=== PATIENT | female | born 1980 | race Caucasian/White ===

== ENCOUNTER 2018-05-28 06:02 | Day surgery (SDC) | payer BC ==
[~2018-05-28 06:02] MED LIST: ACETAMINOPHEN 1,000 MG/100 ML BTL IV ONE; CLINDAMYCIN 600MG/50ML PREMIX 600 MG/50 ML BAG IVPB ONE; FAMOTIDINE 20MG TABLET PO ONE; MECLIZINE 25 MG TABLET PO ONE
[2018-05-28] MEDS ORDERED: LIDOCAINE 2% MDV (20MG/ML) 20ML VIAL IV ONE (06:03)
[2018-05-28] MEDS ORDERED: MIDAZOLAM HCL 2MG/2ML VIAL IV ONE (06:03)
[2018-05-28] MEDS ORDERED: BUPIVACAINE 0.5% W/EPI MPF 30 ML VIAL IVP ONE (06:03)
[2018-05-28] MEDS ORDERED: PROPOFOL 10 MG/ML VIAL IV ONE (06:03)
[2018-05-28] MEDS ORDERED: FENTANYL PF 100MCG/2ML VIAL IV ONE ×2 (06:03)
[2018-05-28] MEDS ORDERED: Clindamycin 600mg vial 150 MG/ML VIAL IVPB ONE (06:03)
[2018-05-28] MEDS ORDERED: DIPHENHYDRAMINE HCL 50 MG/ML VIAL IVP ONE (06:03)
[2018-05-28] MEDS ORDERED: LIDOCAINE 1% W/EPI 1:200,000 MPF 30ML SQ ONE (06:03)
[2018-05-28] MEDS ORDERED: HYDROCODONE/APAP 7.5/325MG TABLET PO ONE (06:03)
--- NOTE | 2018-05-28 06:32 | History and Physical - Ferro ---
CHIEF COMPLAINT/HISTORY OF CHIEF COMPLAINT: This patient presents with a history of an intractable lumbar radiculopathy. Due to the failure of all therapies a spinal cord stimulator trial was conducted on 05/03/18 with 75-85% pain control. Due the failure of all therapies and the success of the trial, she presents today for implantation of a permanent system. PAST MEDICAL HISTORY: Hypothyroidism, asthmatic bronchitis, sleep apnea, and hypertension. PAST SURGICAL HISTORY: Tonsils, section, hysterectomy, and bypass surgery. EMPLOYMENT STATUS: Parti-time. MEDICATIONS ON ADMISSION: List to be provided. ALLERGIES: VICODIN, BIAXIN, EFFEXOR, AND HYDROCORTISONE. FAMILY/PSYCHOSOCIAL HISTORY: Social history - Caffeine. Family history - Diabetes, coronary artery disease, hypertension, and cancer. SYSTEMS REVIEW: The patient is appropriate in no acute distress. The remainder of the systems review is positive for peripheral edema, reflux esophagitis, degenerative arthritis, and anxiety disorder. PHYSICAL EXAMINATION: Height is 5'4", weight is 200 pounds. Vital signs - Not available. HEENT: Within normal limits. LUNGS: Clear. HEART: Rapid and regular rate. ABDOMEN: Nontender. MUSCULOSKELETAL: Examination of the musculoskeletal system shows diffuse tenderness throughout the lumbar spine. Range of motion does produce pain throughout the low back and extending into both lower extremities. There is mild sensory and motor weakness in both lower extremities. Assistive device utilized for ambulation. NEUROLOGIC: Cranial nerves are intact. IMPRESSION: LUMBAR RADICULOPATHY, ICD-10 CODE M54.16 AND M54.17. PLAN: The patient is here for a permanent spinal cord stimulator implant after a successful trial and the failure of all other therapies. The procedure will be considered outpatient although an overnight stay will be evaluated. JOB NUMBER: [id number] [facility]
--- NOTE | 2018-05-28 13:35 | Operative Note ---
DATE: 05/28/2018. PRIMARY CARE PHYSICIAN: Frida Cary M.D. PREOPERATIVE DIAGNOSIS: INTRACTABLE LUMBAR RADICULOPATHY, ICD-10 CODE M54.16 AND M54.17. PROCEDURES: 1. Fluoroscopically guided left epidural access at T11-12. Placement of spinal cord stimulator lead 1, a [employer] Infineon 16 with 16 electrodes, positioned left T7. 2. Fluoroscopically guided epidural access left T12-L1. Placement of spinal cord stimulator lead 2, a [employer] Infineon 16 with 16 electrodes, positioned right T7. 3. Complex programming of lead 1 over 20 minutes followed by complex programming of lead 2 over 20 minutes. 4. Incision, subcutaneous dissection, and anchoring of leads 1 and 2 to the supraspinous fascia using a [employer] locking anchor. 5. Incision, subcutaneous dissection, and creation of subcutaneous pouch at the left flank for placement of generator identified as a [employer] programmable rechargeable WaveWriter generator. 6. Tunnelling between pouches with placement of the external portions of lead 1 and lead 2 into generator pouch. Interfacing each lead to the generator. 7. Closure of incisions using Stratafix suture; #2-0 for the fascia and #3-0 for the skin. Dermabond closure. 8. Complex recovery room programming of the internal generator for home use, two stimulators, for 20 minutes. SURGEON: Terry Vera D.O. ANESTHESIA: Local sedation. ANESTHESIA PROVIDER: Rudy Llanes CRNA. INDICATIONS: This patient presents with a history of intractable lumbar radiculopathy. Due to the failure of all therapies, a spinal cord stimulator trial was conducted with 75 to 85 percent pain control. Due to the failure of all therapies and the success of the trial, the patient presents for implantation of a permanent system. DESCRIPTION OF PROCEDURE: Intravenous lines, vital sign monitoring, and intravenous sedation. Prepped and draped with sterile technique with the patient positioned prone. Under imaging with local anesthetic the epidural interspaces left of the midline at T11-12 and 12-1 were marked and infiltrated. Using two separate Epimed needles curved access with loss of resistance the spaces were accessed. At 11-12 spinal cord stimulator lead 1, a [employer] Infineon 16 with 16 electrodes, was positioned left of T7. With the epidural access at 12-1, spinal cord stimulator lead 2, a [employer] Infineon 16 with 16 electrodes was positioned right of midline at T7. Complex programming of lead 1 over 20 minutes was followed by complex programming of lead 2 over 20 minutes. This resulted in complete patterns of stimulation across the back and into the legs. The patient indicated we were in all of the areas of the pain. She was given the options to implant, continue to program, or remove. She opted to implant. The questions were repeated with the same response. The skin above and below both needles was infiltrated. An incision was made, and subcutaneous dissection was conducted to the supraspinous fascia. The needles were removed, and then each lead was anchored to the supraspinous fascia with a [employer] locking anchor. At the left flank, the site picked by the patient for the generator, the skin was infiltrated. An incision was made and subcutaneous dissection was conducted to perform a pouch of suitable size and depth for the generator. Antibiotic irrigation and Bovie for hemostasis. A tunneling tool was used to carry the leads into the generator pouch, and then each lead was interfaced to the generator. The generator was placed into the pouch and secured to the fascia with nonabsorbable suture. The leads were placed into their own pouch. Both incisions were then closed using Stratafix suture; #2-0 for the fascia and #3-0 for the skin. Dermabond closure She was transported to the recovery room stable with no side effects from the procedure or the sedation. When fully awake and alert, complex programming was performed in the recovery room over 20 minutes, re-establishing stimulation of pain control to all of the appropriate areas. She was instructed on use of the system and was provided with information on error messaging. She was then prepared for discharge. DISCHARGE INSTRUCTIONS: 1. The sites are to remain clean and dry. No showering or bathing in any way that would disrupt the dressings. If this happens, she is to contact the clinic. The Dermabond will allow showering. She may shower but may not sit in water. 2. Standard medications to be resumed including the antibiotic Levaquin 500 mg once a day for 14 days. 3. The office will contact the patient in 24 to 48 hours to set up an appointment in 7 to 10 days to evaluate the sites. Until then she is to keep her activities low. 4. The antibiotic has been called in. 5. All other instructions were provided including numbers to contact with problems. She was then discharged. JOB NUMBER: [id number] cc: Frida Cary M.D. MTDD
--- NOTE | 2018-05-30 20:48 | RADIOLOGY REPORT ---
EXAM: SPINE, 1 VIEW HISTORY: SPINAL CORD STIMULATOR IMPLANT. TECHNIQUE: Single frontal view of the spine. COMPARISON: None. FINDINGS: Spinal cord stimulator leads superimpose the thoracic spine from the T7 through T9-10 levels. Generator pack superimposes the left hemiabdomen. Left abdominal surgical clips are noted. Large volume of stool in the projection of the ascending colon. Visualized lung bases are clear. IMPRESSION: ABOVE. JOB NUMBER: [id number] MTDD
== END 2018-05-28 10:30 | disposition home or self-care (01) ==
LOC: SUR 06:02
PROVIDERS: ATTEND Pain Medicine Interventional Pain Medicine
DX: M54.16 Radiculopathy, lumbar region (principal); M54.17 Radiculopathy, lumbosacral region; I10 Essential (primary) hypertension; J45.909 Unspecified asthma, uncomplicated; K21.9 Gastro-esophageal reflux disease without esophagitis; F41.8 Other specified anxiety disorders; E03.9 Hypothyroidism, unspecified; G47.30 Sleep apnea, unspecified
CPT/HCPCS: 63685; 63650 ×2; 01936; 95972; 72020; J3010; C1820; C1883; J1200

== ENCOUNTER 2018-11-17 07:30 | Day surgery (SDC) | payer BC ==
--- NOTE | 2018-11-17 06:40 | History and Physical - Ferro ---
CHIEF COMPLAINT/HISTORY OF CHIEF COMPLAINT: This patient presents with a history of an intractable cervical radiculopathy. Due to the failure of therapy, a spinal cord stimulator trial was conducted on 11/02/18 with 75+% pain control. Due to the failure of therapy and the success of the trial, the patient presents today for implantation of a permanent system. PAST MEDICAL HISTORY: Hypothyroidism, asthmatic bronchitis, sleep apnea, and hypertension. PAST SURGICAL HISTORY: Tonsils, section, hysterectomy, and bypass surgery. 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 MEDICATIONS ON ADMISSION: List to be provided. ALLERGIES: VICODIN, BIAXIN, EFFEXOR, AND HYDROCORTISONE. FAMILY/PSYCHOSOCIAL HISTORY: Social history - Caffeine. Family history - Diabetes, coronary artery disease, hypertension and cancer. SYSTEMS REVIEW: The patient seems appropriate in no acute distress. The remainder of the systems review is positive for peripheral edema, reflux esophagitis, degenerative arthritis, and anxiety disorder. PHYSICAL EXAMINATION: Height is 5'4", weight is 200 pounds. No vital signs. HEENT: Within normal limits. LUNGS: Clear. HEART: Rapid and regular. ABDOMEN: Nontender. MUSCULOSKELETAL: Examination of the musculoskeletal system shows diffuse tenderness throughout the cervical spine. Range of motion does produce pain throughout the area. There is tenderness along the trapezius, suprascapular, deltoid, and medial rhomboideus muscle groups. Upper extremity function shows no specific or focal sensory or motor abnormalities. Hand grasp and suit attendant strength is intact. NEUROLOGIC: Cranial nerves are intact. IMPRESSION: CERVICAL RADICULOPATHY, ICD-10 CODE M54.12. PLAN: The patient is here for a permanent spinal cord stimulator in the cervical region after the failure of all therapies and the success of the trial. The procedure has been discussed and reviewed in detail. A clinical specialist has interacted with the patient and all questions have been answered. The potential risks, side, effects and complications have been reviewed and discussed. The procedure will be considered outpatient although an overnight stay will be evaluated. [facility]BER: [id number] [facility]
[~2018-11-17 07:30] MED LIST changes: -ACETAMINOPHEN 1,000 MG/100 ML BTL IV ONE; +ACETAMINOPHEN 1,000 MG/100 ML BTL IVPB ONE
[2018-11-17] MEDS ORDERED: FENTANYL PF 100MCG/2ML VIAL IV ONE (07:31)
[2018-11-17] MEDS ORDERED: Clindamycin 600mg vial 150 MG/ML VIAL IVPB ONE (07:31)
[2018-11-17] MEDS ORDERED: ONDANSETRON HCL IV 4 MG/2 ML VIAL IVP ONE (07:31)
[2018-11-17] MEDS ORDERED: PROPOFOL 10 MG/ML VIAL IV ONE (07:31)
[2018-11-17] MEDS ORDERED: DIPHENHYDRAMINE HCL 50 MG/ML VIAL IVP ONE (07:31)
[2018-11-17] MEDS ORDERED: MIDAZOLAM HCL 2MG/2ML VIAL IV ONE (07:31)
[2018-11-17] MEDS ORDERED: LIDOCAINE 2% MDV (20MG/ML) 20ML VIAL IV ONE (07:31)
[2018-11-17] MEDS ORDERED: RINGERS SOLUTION,LACTATED 1,000 ML IV ONE ×2 (08:14→11:40)
[2018-11-17] MEDS ORDERED: BUPIVACAINE 0.5% W/EPI MPF 30 ML VIAL SQ ONE ×2 (10:40)
[2018-11-17] MEDS ORDERED: LIDOCAINE 1% W/EPI 1:100,000 MDV 20 ML VIAL SQ ONE ×2 (10:40)
[2018-11-17] MEDS ORDERED: OXYCODONE/APAP 10MG-325MG TABLET PO ONE (12:31)
--- NOTE | 2018-11-18 11:11 | Operative Note ---
DATE OF SURGERY: 11/17/2018 PREOPERATIVE DIAGNOSES: Cervical radiculopathy, ICD-10 code M54.12. OPERATION: 1. Fluoroscopic-guided left epidural access T2-3, placement of spinal cord stimulator lead 1, a [employer] Infinion 16 6 electrodes positioned left C2. 2. Fluoroscopic-guided epidural access left T3-4, placement of spinal cord stimulator lead 2, a [employer] Infinion 16 6 electrodes positioned right C2. 3. Complex programming of lead 1 over 20 minutes, followed by complex programming of lead 2 over 20 minutes. 4. Incision subcutaneous dissection and anchoring of leads 1 and leads 2 to supraspinous fascia with a [employer] locking anchor nonabsorbable suture. 5. Incision and subcutaneous dissection and creation of a subcutaneous pouch right flank, for placement of generator, a [employer] programmable rechargeable WaveWriter. 6. Tunneling between lead pouch into generator pouch, placement of external portion of lead 1 and lead 2 in the generator pouch, each lead interfaced to the generator. 7. Placement of leads into pouch, placement of generator pouch, closure of both incisions using Stratafix suture, 2-0 fascia, 3-0 skin, Dermabond closure. 8. Complex recovery room programming internal generator home use 2 stimulators, 20 minutes. SURGEON: Terry Vera D.O. PRIMARY: Dr. Frida Cary. ANESTHESIA: Local sedation. ANESTHESIA PROVIDER: Sreedhar Gallegos CRNA. INDICATION: This patient presents with a history of intractable cervical radiculopathy. Due to the failure of all therapies, a spinal cord stimulator trial was conducted with 75 to 85% pain control. Due to the failure of all therapy and the success of the trial, the patient presents today for implantation of a permanent system. PROCEDURE: Intravenous line, vital sign monitoring, IV sedation, prepped and draped in sterile technique, under imaging, the patient prone. From the left, with local anesthetic, the epidural interspace at T2-3 and C4 were marked and infiltrated, then using 2 standard epidural needles, the epidural space was accessed atraumatic, no blood, no CSF. At T2-3 spinal cord stimulator lead 1 a [employer] Infinion 16 6 electrodes was advanced under imaging positioned left of the midline at C2. With the access at 3-4 spinal cord stimulator lead 2 [employer] Infinion 16 6 electrodes was positioned right of the midline, positioned at C2. Complex programming of lead 1 over 20 minutes, complex programming of lead 2 over 20 minutes with the patient awake and alert, resulted in complete pattern stimulation across the neck and into the shoulders and arms, the patient indicating we had all the areas. She was given the option to implant, continue to program, or remove. She opted to implant. The question was repeated with the same response. The skin below both needles was infiltrated with local. An incision was made and subcutaneous dissection was conducted in the supraspinous fascia. The needles were removed and each lead was anchored to the supraspinous fascia with a [employer] locking anchor and nonabsorbable suture. At the right flank, the site picked by the patient for the generator, a [employer] programmable rechargeable WaveWriter, the skin infiltrated, an incision made and subcutaneous dissection was conducted to the supraspinous fascia. The needles were removed, then each lead was anchored to the fascia with a nonabsorbable suture and a locking anchor. At the right flank, a site picked by the patient for the generator, the skin infiltrated, an incision made and subcutaneous dissection was conducted to form a pouch of suitable size and depth for the generator, a [employer] programmable rechargeable WaveWriter. A tunneling tool was then used to carry the leads into the generator pouch and then each lead was interfaced with the generator. Antibiotic irrigation and Bovie for hemostasis at both sites. The generator was then placed in its pouch. The leads were placed in their own pouch and then both incisions were closed using Stratafix suture 2-0 fascia and 3-0 skin. Dermabond closure was then used to approximate the edges of both wounds. The patient was transported to the recovery room stable. There were no side effects from the procedure or sedation. When fully awake and alert, complex programming of the system was performed, re-establishing stimulation and pain control to all the appropriate areas. The patient was requesting to be discharged home. Discharge instructions were provided. DISCHARGE INSTRUCTIONS: 1. The sites will remain clean and dry, although the Dermabond will allow showering, she should not sit in water. 2. Standard medications resumed, including the antibiotic Levaquin, 500 mg once a day for 14 days. 3. The office to contact the patient in the next 12 to 24 hours to set up a time in the next 7 to 10 days for us to evaluate the sites. Until then, her sites should stay clean and dry. Limit bend, lift, push, and pull. 4. All other instructions were provided, with numbers to contact if problems given. She was then discharged. NEVILLE
--- NOTE | 2018-11-19 11:13 | RADIOLOGY REPORT ---
EXAM: CERVICOTHORACIC SPINE, ONE VIEW HISTORY: CERVICAL SPINAL CORD STIMULATOR IMPLANT. TECHNIQUE: A single AP potable supine view of the spine was obtained including the cervical and upper three quarters of the thoracic spine. Comparison: Spine one view dated 05/28/18. FINDINGS: Two intraspinal stimulator leads have been placed in the interval entering the spinal canal at the upper thoracic levels, likely T3-T4. Stimulator leads are noted projecting at the C3 level. Two previously demonstrated intraspinal stimulator leads remain in place with lead tips projecting at the T7-T8 level. No acute osseous abnormality noted. IMPRESSION: CERVICAL INTRASPINAL STIMULATOR LEADS IN PLACE WITH LEAD TIPS AT THE C3 LEVEL. JOB NUMBER: [id number] MTDD
== END 2018-11-17 13:02 | disposition home or self-care (01) ==
LOC: SUR 07:30
PROVIDERS: ATTEND Pain Medicine Interventional Pain Medicine
DX: M54.12 Radiculopathy, cervical region (principal); I10 Essential (primary) hypertension; J45.909 Unspecified asthma, uncomplicated; G47.33 Obstructive sleep apnea (adult) (pediatric); K21.9 Gastro-esophageal reflux disease without esophagitis
CPT/HCPCS: 72020; 95972; C1820; C1883; J1200; J2405; J7120

== ENCOUNTER 2019-03-09 06:45 | Day surgery (SDC) | payer BC ==
--- NOTE | 2019-03-09 06:24 | History and Physical - Ferro ---
CHIEF COMPLAINT/HISTORY OF CHIEF COMPLAINT: This patient presents with history of intractable cervical radiculopathy. Due to failure of all therapies, a spinal cord stimulator implant was performed for neck, shoulder and arm on 11/17/18. Everything appeared to be working quite well with respect to the stimulator the generator site became quite uncomfortable sitting at the right flank. The generator began to migrate, move and flip within the pouch making the area sore, uncomfortable and making it difficult for recharging and programming. She is here for revision and repositioning of the generator. PAST MEDICAL HISTORY: Hypothyroidism, asthmatic bronchitis, sleep apnea, and hypertension. PAST SURGICAL HISTORY: Tonsils, section, hysterectomy, and coronary bypass surgery. EMPLOYMENT STATUS: She is employed. MEDICATIONS ON ADMISSION: List to be provided. ALLERGIES: VICODIN, BIAXIN, EFFEXOR, AND HYDROCORTISONE. FAMILY/PSYCHOSOCIAL HISTORY: Social history - Caffeine. Family history - Diabetes, coronary artery disease, hypertension and cancer. SYSTEMS REVIEW: The patient is appropriate in no acute distress. The remainder of the systems review is positive for peripheral edema, reflux esophagitis, degenerative arthritis, and anxiety disorder. PHYSICAL EXAMINATION: Height is 5'4", weight is 200 pounds. No vital signs. HEENT: Within normal limits. LUNGS: Clear. HEART: Rapid and regular. ABDOMEN: Nontender. MUSCULOSKELETAL: Examination of the musculoskeletal system shows the generator pouch at the right flank although the incision is intact the generator appears to have flipped and is sitting at approximately a forty-five degree angle. The generator outline can easily be identified, there is some compression and printing on the skin although the skin is not broken down at this point it appears to be very uncomfortable within the area. The remainder of the examination is consistent with bilateral cervical pain and upper extremity components. NEUROLOGIC: Cranial nerves are intact. IMPRESSION: 1. CERVICAL RADICULOPATHY, ICD-10 CODE M54.12. 2. SPINAL CORD STIMULATOR AND INTERNAL GENERATOR WITH GENERATOR POUCH PAIN. PLAN: The patient is here for revision of the generator pouch and repositioning. The procedure will be outpatient, no overnight stay should be necessary. JOB NUMBER: [id number] [facility]
[2019-03-09] MEDS ORDERED: PROPOFOL 10 MG/ML VIAL IV ONE (06:46)
[2019-03-09] MEDS ORDERED: KETAMINE HCL 100MG/1ML VIAL INJ ONE (06:46)
[2019-03-09] MEDS ORDERED: LIDOCAINE 2% MDV (20MG/ML) 20ML VIAL IV ONE (06:46)
[2019-03-09] MEDS ORDERED: Clindamycin 600mg vial 150 MG/ML VIAL IVPB ONE (06:46)
[2019-03-09] MEDS ORDERED: ONDANSETRON HCL IV 4 MG/2 ML VIAL IVP ONE (06:46)
[2019-03-09] MEDS ORDERED: RINGERS SOLUTION,LACTATED 1,000 ML IV ONE (07:30)
[2019-03-09] MEDS ORDERED: BUPIVACAINE 0.5% W/EPI MPF 30 ML VIAL SQ ONE (08:47)
[2019-03-09] MEDS ORDERED: LIDOCAINE 1% W/EPI 1:100,000 MDV 20 ML VIAL SQ ONE (08:47)
[2019-03-09] MEDS ORDERED: OXYCODONE/APAP 10MG-325MG TABLET PO ONE (09:42)
[2019-03-09] MEDS ORDERED: HYDROCODONE/APAP 7.5/325MG TABLET PO ONE (09:42)
--- NOTE | 2019-03-10 13:51 | Operative Note ---
DATE OF SURGERY: 03/09/2019 PREOPERATIVE DIAGNOSES: 1. Cervical radiculopathy, ICD10 code M54.16 and M54.17. 2. Implanted cervical spinal cord stimulator internal generator with generator pouch pain. OPERATION: 1. Incision, subcutaneous dissection, and removal of spinal cord stimulator generator right flank. 2. Incision, subcutaneous dissection, and creation of new subcutaneous pouch [id number] thoracic right flank. 3. Tunneling of lead extensions into generator pouch each lead extension interfaced to generator. 4. Placement of generator pouch, closure of both incisions using Stratafix suture, 2-0 fascia, 3-0 skin, Dermabond closure. 5. Complex programming internal generator. SURGEON: Terry Vera, ANESTHESIA: Local with sedation. ANESTHESIA PROVIDER: Christin Hirsch INDICATION: This patient presents with a history of intractable cervical radiculopathy. Due to the failure of therapy, spinal cord stimulator internal generator was placed with the generator at the low right flank. Over time, because of the soft tissue region, the generator has moved. It is angled roughly 45 degrees and created significant amount of pain. She is here for removal, replacement, and relocation. PROCEDURE: Intravenous line, vital sign monitoring, IV sedation. Patient positioned prone. The incisional pouch to the generator infiltrated, incision made, and subcutaneous dissection was conducted to the pouch. The pouch was opened. The generator was exteriorized and removed from the field. A new pouch approximately 6 cm above was infiltrated. An incision was made, and subcutaneous dissection was conducted to form a pouch of suitable size and depth for the generator. A new [employer] WaveWriter generator placed onto the field. A tunneling tool was used to carry the lead extensions from the previous pouch superior into the new pouch. Antibiotic irrigation, Bovie for hemostasis. Each of the lead extensions was then interfaced to the generator. The generator was placed into the new pouch and then both incisions were closed using Stratafix suture, 2-0 fascia, 3-0 skin, Dermabond closure. She was transferred to the recovery room stable. There were no side effects from the procedure or sedation. When fully awake and alert in the recovery room, complex programming was then performed over 20 minutes reestablishing stimulation and pain control to all the appropriate areas. She was instructed on the system, provided information, and prepared for discharge. DISCHARGE INSTRUCTIONS: 1. Sites to remain clean and dry. The Dermabond will allow showering but she should not sit in water. 2. Standard medication resumed including antibiotic Levaquin 500 mg once a day for 14 days. 3. Office to contact the patient over the next several days to set up a time in the following week in roughly 5-7 days for us to evaluate the sites. Until then, she is to keep her activities controlled. She has suggested that she would be returning to work in a capacity that would not put the incisions under stress or strain. I suggested that she should monitor this and advise us. All the instructions provided, numbers to contact if problems given. She was then discharged. NEVILLE
== END 2019-03-09 10:30 | disposition home or self-care (01) ==
LOC: SUR 06:45
PROVIDERS: ATTEND Pain Medicine Interventional Pain Medicine
DX: M54.16 Radiculopathy, lumbar region (principal); M54.17 Radiculopathy, lumbosacral region; T85.848A Pain due to other internal prosthetic devices, implants and grafts, initial encounter; I10 Essential (primary) hypertension; G21.9 Secondary parkinsonism, unspecified; E03.9 Hypothyroidism, unspecified; J45.909 Unspecified asthma, uncomplicated; E66.9 Obesity, unspecified
CPT/HCPCS: C1820; J2405; J3490; J7120

== ENCOUNTER 2019-06-01 08:55 | Day surgery (SDC) | payer BC ==
--- NOTE | 2019-06-01 07:02 | History and Physical - Ferro ---
CHIEF COMPLAINT/HISTORY OF CHIEF COMPLAINT: This patient presents with a history of an intractable lumbar radiculopathy. Diagnostic imaging shows diffuse spondylitic change and multiple disk abnormalities. Due to the failure of therapy she is here for an implanted spinal catheter infusion trial with Hydromorphone to determine if the implantation of a permanent system can be of any value in pain control. PAST MEDICAL HISTORY: Hypothyroidism, asthmatic bronchitis, sleep apnea, and hypertension. PAST SURGICAL HISTORY: Hysterectomy, coronary artery bypass, tonsils, and section. MEDICATIONS ON ADMISSION: List to be provided. ALLERGIES: VICODIN, BIAXIN, EFFEXOR, AND HYDROCORTISONE. FAMILY/PSYCHOSOCIAL HISTORY: Social history - Caffeine. Family history - Diabetes, coronary artery disease, hypertension and cancer. SYSTEMS REVIEW: The patient is appropriate in no acute distress. The remainder of the systems review is positive for peripheral edema, reflux esophagitis, degenerative arthritis, and anxiety disorder. PHYSICAL EXAMINATION: Height is 5'4", weight is 200 pounds. No vital signs. HEENT: Within normal limits. LUNGS: Clear. HEART: Rapid and regular. ABDOMEN: Nontender. MUSCULOSKELETAL: Examination of the musculoskeletal system shows diffuse tenderness throughout the lumbar spine. Range of motion does produce pain into the low back and extending into the lower extremities, somewhat more left than right all the way into the foot. Ambulation - No assistive device utilized. Motor and sensory abnormalities show weakness and sensory abnormalities to the left. NEUROLOGIC: Cranial nerves are intact. IMPRESSION: LUMBAR RADICULOPATHY, ICD-10 CODE M54.16 AND M54.17. PLAN: The patient is here for an implanted catheter infusion trial with Hydromorphone to determine if the implantation of a permanent system can be of any value in pain control. The potential risks, side effects, and complications have all been reviewed and discussed. Epidural blood patch will be performed which requires four hours flat and one hour slowly elevated so an overnight stay will be recommended. Information had been given, reviewed and discussed. She was put in contact with a clinical specialist. The potential risks, nerve root trauma, spinal cord injury, and nerve root injury have all been reviewed and discussed. Questions answered. JOB NUMBER: [id number] MTDD
[~2019-06-01 08:55] MED LIST changes: +HYDROMORPHONE PF 2MG/ML AMP 0.008 MG in 0.9 % SODIUM CHLORIDE 10ML VIA 0.996 ML IV ONE; +HYDROMORPHONE PF 2MG/ML AMP 8 MG in 0.9 % SODIUM CHLORIDE 500ML 496 ML IV ONE
[2019-06-01] MEDS ORDERED: RINGERS SOLUTION,LACTATED 1,000 ML IV ONE ×2 (10:02→11:42)
[2019-06-01] MEDS ORDERED: BUPIVACAINE 0.5% W/EPI MPF 30 ML VIAL SQ ONE (11:14)
[2019-06-01] MEDS ORDERED: LIDOCAINE 1% W/EPI 1:100,000 MDV 20 ML VIAL SQ ONE (11:14)
[2019-06-01] MEDS ORDERED: Clindamycin 600mg vial 150 MG/ML VIAL IR ONE (11:21)
[2019-06-01] MEDS ORDERED: ACETAMINOPHEN 325 MG TAB PO PRN (12:45)
[2019-06-01] MEDS ORDERED: SENNOSIDES/DOCUSATE SODIUM UD CAPSULE PO PRN ×2 (12:45)
[2019-06-01] MEDS ORDERED: OXYCODONE/APAP 10MG-325MG TABLET PO PRN (12:45)
[2019-06-01] MEDS ORDERED: DIPHENHYDRAMINE HCL 50 MG/ML VIAL IVP PRN ×2 (12:45)
[2019-06-01] MEDS ORDERED: TEMAZEPAM 15 MG CAPSULE PO PRN (12:45)
[2019-06-01] MEDS ORDERED: DIPHENHYDRAMINE HCL 25 MG CAPSULE PO PRN (12:45)
[2019-06-01] MEDS ORDERED: HYDROMORPHONE HCL 2 MG/ML VIAL IM PRN ×2 (12:45)
[2019-06-01] MEDS ORDERED: AL HYDROX/MAG HYDROX 30ML UD PO PRN (12:45)
[2019-06-01] MEDS ORDERED: PROMETHAZINE HCL 25 MG TABLET PO PRN (12:54)
[2019-06-01] MEDS ORDERED: ONDANSETRON 4 MG ODT TABLET SL PRN (12:55)
[2019-06-01] MEDS ORDERED: ALBUTEROL HFA 8 GM INHALER INH PRN (12:55)
[2019-06-01] MEDS: RINGERS SOLUTION,LACTATED 1,000 ML IV SCH ×2 (15:24→17:05)
[2019-06-01] MEDS: GABAPENTIN 300 MG CAPSULE PO SCH ×2 (16:34→21:34)
[2019-06-01] MEDS: OXYCODONE/APAP 10MG-325MG TABLET PO PRN (16:35)
[2019-06-01] MEDS: BACLOFEN 10 MG TABLET PO SCH ×2 (16:35→23:00)
[2019-06-01] MEDS: DIPHENHYDRAMINE HCL 25 MG CAPSULE PO PRN ×2 (17:52→20:37)
[2019-06-01] MEDS: CLINDAMYCIN 600MG/50ML PREMIX 600 MG/50 ML BAG IVPB SCH (18:01)
[2019-06-01] MEDS: BUPROPION HCL 150 MG TAB.SR.12H PO SCH (21:34)
[2019-06-01] MEDS: PANTOPRAZOLE SODIUM 40 MG TABLET PO SCH (21:35)
[2019-06-01] MEDS ORDERED: TRAZODONE 50 MG TABLET PO SCH (22:00)
[2019-06-02] MEDS: DIPHENHYDRAMINE HCL 25 MG CAPSULE PO PRN ×4 (00:42→15:22)
[2019-06-02] MEDS: OXYCODONE/APAP 10MG-325MG TABLET PO PRN ×3 (00:43→06:24)
[2019-06-02] MEDS: RINGERS SOLUTION,LACTATED 1,000 ML IV SCH ×2 (00:47→04:45)
[2019-06-02] MEDS: CLINDAMYCIN 600MG/50ML PREMIX 600 MG/50 ML BAG IVPB SCH ×2 (03:40→10:50)
[2019-06-02] MEDS ORDERED: LEVOTHYROXINE SODIUM 100 MCG TABLET PO SCH (07:00)
--- NOTE | 2019-06-02 07:23 | RADIOLOGY REPORT ---
EXAMINATION: Spine Single View EXAM DATE: 06/01/2019 12:33 PM TECHNIQUE: Lateral view INDICATION: PAIN PUMP TRIAL COMPARISON: 11/17/2018 ENCOUNTER: Initial FINDINGS: Radiopaque object projects over the abdomen bilaterally with tubes or leads coursing towards the spin e. See operative report for full description of findings. No acute fracture evident on the frontal vi ews obtained. IMPRESSION: 1. Radiopaque object projects over the abdomen bilaterally with tubes or leads coursing towards the s pine. See operative report for full description of findings. Dictated by: Kolby Thrasher DO on 06/02/2019 7:19 AM. .
[2019-06-02] MEDS: GABAPENTIN 300 MG CAPSULE PO SCH ×2 (09:24→15:23)
[2019-06-02] MEDS: PANTOPRAZOLE SODIUM 40 MG TABLET PO SCH (09:24)
[2019-06-02] MEDS: BUPROPION HCL 150 MG TAB.SR.12H PO SCH (09:26)
[2019-06-02] MEDS: BACLOFEN 10 MG TABLET PO SCH ×2 (09:26→15:22)
[2019-06-02] MEDS ORDERED: DULOXETINE HCL 30 MG CAPSULE.DR PO SCH (10:00)
[2019-06-02] MEDS ORDERED: DILTIAZEM HCL 120 MG ER CAPSULE PO SCH (10:00)
--- NOTE | 2019-06-02 10:12 | Operative Note - [facility] ---
DATE OF SURGERY: 06/01/2019 PREOPERATIVE DIAGNOSIS: LUMBAR RADICULOPATHY, ICD-10 CODE M54.16 AND M54.17. OPERATION: 1. FLUOROSCOPICALLY GUIDED SPINAL ACCESS AT L3-L4 PLACEMENT OF THIN WALLED SPINAL CATHETER ADVANCED AND POSITIONED AT T11-T12. 2. DIAGNOSTIC MYELOGRAPHY WITH RADIOLOGIC SUPERVISION AND INTERPRETATION. 3. BOLUS HYDROMORPHONE SPINAL SPACE 0.004 MG GIVEN. 4. INCISION, SUBCUTANEOUS DISSECTION, ANCHORING SPINAL CATHETER TO THE DEEP FASCIA WITH A PlaytoxTRONIC ANCHOR AND NONABSORBABLE SUTURE. 5. INCISION, SUBCUTANEOUS DISSECTION AND CREATION OF SUBCUTANEOUS POUCH RIGHT POSTERIOR GLUTEAL MARGIN ULTIMATELY FOR PUMP. A SMALL SUBCUTANEOUS INCISION IN THE POUCH WAS FORMED. 6. TUNNELLING SPINAL CATHETER TO RIGHT POSTERIOR GLUTEAL POUCH, INTERFACE SPINAL CATHETER WITH SECOND CATHETER COMPONENT BY WAY OF A CONNECTOR. 7. TUNNELLING SECOND CATHETER COMPONENTS 6 CM SUPERIOR FROM POUCH EXITING SKIN, INTERFACED TO EXTERNAL PUMP SET TO DELIVER HYDROMORPHONE AT 0.16 MG A DAY. 8. CLOSURE OF MIDLINE INCISION STRATAFIX SUTURE 2-0 FASCIA AND 3-0 SKIN, CLOSURE OF POSTERIOR GLUTEAL POUCH WITH RUNNING NYLON. 9. EPIDURAL BLOOD PATCH AT L4-L5 20 ML AUTOLOGOUS BLOOD DRAWN, STERILE TECHNIQUE, LEFT ANTECUBITAL. 10. PLACEMENT OF DRESSINGS OVER INCISIONAL SITES SECURING CATHETER, ALL CONNECTIONS WITH STERILE DRESSING AND SECURING BOTH INCISIONS. THE PATIENT WAS TRANSPORTED TO THE RECOVERY ROOM STABLE, FLAT, PILLOW UNDER HER HEAD AND KNEES, FULL FUNCTIONALITY. NO UNUSUAL PAIN PATTERNS. STABLE. SURGEON: Terry Vera D.O. ANESTHESIA: Local sedation. ANESTHESIA PROVIDER: Sreedhar Gallegos CRNA INDICATION: This patient presents with a history of intractable lumbar radiculopathy. Due to the failure of therapy she is here for an implanted spinal catheter infusion trial with spinal Hydromorphone to determine if the implantation of a permanent system can be of any value in pain control. PROCEDURE: Intravenous line, vital sign monitoring, IV sedation, prepped and draped, sterile technique. The patient was positioned prone. Sterile prep, sterile technique. Under imaging the spinal interface at L3-L4 was marked, skin infiltrated, using a 20-gauge spinal needle paramedian approach bevel along the long axis into the space. With CSF flow a thin walled spinal catheter was advanced, positioned at T11-T12, consistent with the pattern of pain moving into the mid thoracic and lumbar. With CSF flow the needle position confirmed. Spinal catheter was advanced and positioned at T11-T12 as noted. Diagnostic myelography was performed. The flow characteristics were appropriate in the space showing smooth linear flow and appropriate catheter position. A bolus of Hydromorphone through the catheter at 0.004 mg was given. The catheter was clamped to stop CSF leak. The skin above and below the needle infiltrated, an incision made, and subcutaneous dissection was conducted to the supraspinous fascia. The needle was removed, and the catheter was anchored to the supraspinous fascia with a Vaxxas anchor and nonabsorbable suture. At the right posterior gluteal margin the site ultimately for the pump picked by the patient, the skin was infiltrated, incision made and subcutaneous dissection was conducted to form a small subcutaneous pouch. The spinal catheter was then tunnelled to this posterior pouch and then interfaced with the second catheter component by way of connector. The second catheter component was then tunnelled 6 m superior from this site exiting the skin. The external catheter was then interfaced with the external pump. The pump was set to deliver Hydromorphone at 0.016 mg a day. The midline incision was closed with Stratafix suture 2-0 fascia, and 3-0 skin. The posterior pouch was closed with a running nylon. At the L4-L5 one level below the dural puncture, the skin was infiltrated, and a 17-gauge 6-inch Tuohy needle with loss of resistance into the epidural space. 20 ml autologous blood drawn, sterile technique from the left antecubital placed onto the field maintaining sterility, an epidural blood patch was performed at this level of the spine. The needle was removed. A dressing was placed securing the catheter and connections. Sterile dressing as well as the incisions. She was then transported to the Recovery Room stable. There were no unusual pain patterns, no side effects. She had full functionality of extremities and no complaints. She will be kept overnight for observation, kept flat for four hours and then slowly elevated for one. She will be discharged in the morning. DISCHARGE INSTRUCTIONS: 1. The sites are to remain clean and dry. No showering or bathing in any way that would disrupt the dressings. If it happens contact the clinic. 2. Standard medications are resumed including the antibiotic Levaquin 500 mg once a day for fourteen days. 3. Spinal opioid side effects, respiratory depression, nausea, vomiting, constipation, urinary retention, lightheadedness, and rash have all been discussed and reviewed. Any side effects she should contact the clinic or go to the local Emergency Room. 4. All other instructions are provided. Numbers to contact if problems given. Three increases will be set up in the office over the next two weeks. The appropriate schedule has been given and provided. Will monitor and evaluate. JOB NUMBER: [id number] MTDD
== END 2019-06-02 15:30 | disposition home or self-care (01) ==
LOC: SUR 08:55 → MEDSURG 12:42 → SUR 06-02 15:30
PROVIDERS: ATTEND Pain Medicine Interventional Pain Medicine
DX: M54.16 Radiculopathy, lumbar region (principal); M54.17 Radiculopathy, lumbosacral region; I10 Essential (primary) hypertension; E03.9 Hypothyroidism, unspecified; G47.33 Obstructive sleep apnea (adult) (pediatric)
CPT/HCPCS: 72020; J1170; J3490; J7040; J7120; Q0170

== ENCOUNTER 2019-06-04 23:28 | Emergency (ER) | payer BC ==
--- NOTE | 2019-06-05 00:02 | Emergency Department Record ---
History of Present Illness - General Chief Complaint: Headache Migraine Stated Complaint: HEADACHE Time Seen by Provider: 06/04/19 23:32 Source: Patient Mode of Arrival: Ambulatory Limitations: No limitations - History of Present Illness Initial Comments: 39 yo female presents to ED for evaluation of headache symptoms that began yesterday afternoon, similar in feeling to previous migraine-type headache however more severe. Patient denies stiff neck symptoms, fevers, chills, nausea, or vomiting. Patient denies use of anticoagulation medications as well. Patient does report that she is post-op from dilaudid pain pump implantation [address] Vera, 2 weeks out from recent [id number]-en-y revision surgery with Dr. King. Patient denies abrupt onset of her symptoms, reports that her symptoms have gradually worsened. MD Complaint: Headache Onset/Timin -: Days(s) Onset Description: Gradual Location: Frontal, Occipital Severity: Severe Severity scale (1-10): >10 Consistency: Constant, Getting worse Improves With: Nothing Worsens With: None Context: Recent spinal/epidural procedure Associated Symptoms: Nausea, Photophobia, Sensitivity to sound Treatments Prior to Arrival: Acetaminophen - Related Data Home Medications Medication Instructions Recorded Confirmed Last Taken Albuterol Sulfate [Proair Hfa] 1 - 2 puff IH .EVERY 4-6 HOURS PRN 06/04/1906/04 Unknown Baclofen 10 mg PO DAILY 06/04/19 06/04/19 Unknown Beclomethasone Dipropionate [Qvar 8.7 gm IH ASDIR 06/04/19 06/04/19 Unknown 80Mcg/100 Actuat Inhaler] Bupropion HCl [Wellbutrin Sr] 100 mg PO DAILY 06/04/19 06/04/19 06/04/19 Diltiazem HCl [Cardizem] 120 mg PO DAILY 06/04/19 06/04/19 06/04/19 Duloxetine HCl [Cymbalta] 60 mg PO DAILY 06/04/19 06/04/19 06/04/19 Esomeprazole Magnesium [Nexium] 40 mg PO DAILY 06/04/19 06/04/19 06/04/19 Estradiol 0.5 mg PO DAILY 06/04/19 06/04/19 06/04/19 Gabapentin [Neurontin] 1,200 mg PO DAILY 06/04/19 06/04/19 06/04/19 Levofloxacin [Levaquin Tab] 500 mg PO DAILY 06/04/19 06/04/19 06/04/19 Levothyroxine Sodium [Synthroid] 100 mcg PO DAILY 06/04/19 06/04/19 06/04/19 Ondansetron HCl [Zofran] 4 mg PO ASDIR 06/04/19 06/04/19 Unknown Promethazine HCl [Phenergan] 25 mg PO DAILY 06/04/19 06/04/19 Unknown Trazodone HCl 50 mg PO DAILY 06/04/19 06/04/19 06/03/19 Allergies Allergy/AdvReac Type Severity Reaction Status Date / Time adhesive tape Allergy BLISTERS Verified 06/04/19 23:34 bacitracin Allergy BLISTERS Verified 06/04/19 23:34 [From Triple Antibiotic] clarithromycin [From Biaxin] Allergy HIVES Verified 06/04/19 23:34 neomycin Allergy BLISTERS Verified 06/04/19 23:34 [From Triple Antibiotic] polymyxin B Allergy BLISTERS Verified 06/04/19 23:34 [From Triple Antibiotic] amoxicillin [From Augmentin] AdvReac NAUSEA AND Verified 06/04/19 23:34 VOMITING clavulanic acid AdvReac NAUSEA AND Verified 06/04/19 23:34 [From Augmentin] VOMITING hydrocodone AdvReac ABDOMINAL Verified 06/04/19 23:34 PAIN metoclopramide [From Reglan] AdvReac HYPERSENSIT Verified 06/04/19 23:34 IVITY Travel Screening - Travel/Exposure Within Last 30 Days Have you traveled within the last 30 days?: No - Travel/Exposure Within Last Year Have you traveled outside the [place] in the last year?: No - Additonal Travel Details Have you been exposed to anyone with a communicable illness?: No - Travel Symptoms Symptom Screening: None Review of Systems Constitutional: Denies: Chills, Fever, Malaise, Night sweats Eyes: Denies: Eye discharge, Eye pain ENT: Denies: Congestion, Ear pain, Epistaxis Respiratory: Denies: Cough, Dyspnea Cardiovascular: Denies: Chest pain, Dyspnea on exertion Endocrine: Denies: Fatigue, Heat or cold intolerance Gastrointestinal: Reports: Nausea. Denies: Abdominal pain, Constipation, Vomiting Genitourinary: Denies: Incontinence, Retention Musculoskeletal: Denies: Arthralgia, Back pain Skin: Denies: Bruising, Change in color Neurological: Reports: Headache. Denies: Abnormal gait, Confusion, Seizure Psychiatric: Denies: Anxiety Hematological/Lymphatic: Denies: Anemia, Blood Clots Past Medical History - SOCIAL HISTORY Smoking Status: Never smoker Alcohol Use: None Drug Use: None - RESPIRATORY Hx Respiratory Disorders: Yes Hx Asthma: Yes (problems with URI and exercise NO RECENT PROBLEM) Hx Bronchitis: Yes Hx Pneumonia: Yes Hx Sleep Apnea: Yes Hx of CPAP: No (doesnt use all the time) - CARDIOVASCULAR Hx Cardio Disorders: Yes Hx Hypertension: Yes (on meds good control) Comment:: due to back pain - NEURO Hx Neuro Disorders: Yes Hx Dizziness: Yes Hx Headaches: Yes (occassionally) Hx of Migraines: Yes (infrequent) Hx Neuropathy: Yes (legs) - GI Hx GI Disorders: Yes Hx Reflux: Yes Hx Nausea/Vomiting: Yes (frequent nausea) Hx Wt Loss/Wt Gain: Yes (100 wt loss since gastric bypass 1 yr ago) Comment:: Revision of Gastric Bypass 05/24/19 - Hx Genitourinary Disorders: No Comment:: S/P hyst - ENDOCRINE Hx Endocrine Disorders: Yes Hx Thyroid Disease: Yes (on meds) - MUSCULOSKELETAL Hx Musculoskeletal Disorders: Yes Hx Arthritis: Yes (back and feet) Hx Fibromyalgia: Yes - PSYCH Hx Psych Problems: Yes Hx Anxiety: Yes Hx Depression: Yes - HEMATOLOGY/ONCOLOGY Hx Hematology/Oncology Disorders: Yes Hx Anemia: Yes (in past) 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) Hx Chemotherapy: No Hx Radiation Therapy: No Family Medical History Any Significant Family History?: Yes Family Hx Comment (NOT TO BE USED IN PLACE OF ITEMS BELOW): fathers hx unknown Hx Diabetes: Mother Physical Exam - General General Appearance: Alert, Oriented x3, Cooperative, Moderate distress (appears uncomfortable on examination, no meningeal signs are present on exam.) Limitations: No limitations - Head Head exam: Atraumatic, Normocephalic, Normal inspection Head exam detail: negative: Abrasion, Contusion, Reed's sign, General tenderness, Hematoma, Laceration - Eye Eye exam: Normal appearance. negative: Conjunctival injection, Periorbital swelling, Periorbital tenderness, Scleral icterus - ENT Ear exam: negative: Auricular hematoma, Auricular trauma Nasal Exam: negative: Active bleeding, Discharge, Dried blood, Foreign body Mouth exam: negative: Drooling, Laceration, Muffled voice, Tongue elevation - Neck Neck exam: Normal inspection. negative: Meningismus, Tenderness - Respiratory Respiratory exam: Normal lung sounds bilaterally. negative: Rales, Respiratory distress, Rhonchi, Stridor - Cardiovascular Cardiovascular Exam: Regular rate, Normal rhythm, Normal heart sounds - GI/Abdominal GI/Abdominal exam: Soft. negative: Rebound, Rigid, Tenderness - Rectal Rectal exam: Deferred - exam: Deferred - Extremities Extremities exam: Normal inspection. negative: Pedal edema, Tenderness - Back Back exam: Reports: Other (Surgical site appears clean, dry, and intact on examination-no clinical concern for infection is present on examination.). Denies: CVA tenderness (R), CVA tenderness (L) - Neurological Neurological exam: Alert, Normal gait, Oriented X3 - Psychiatric Psychiatric exam: Normal affect, Normal mood - Skin Skin exam: Normal color. negative: Abrasion Type of lesion: negative: abrasion Course Vital Signs 06/04/19 23:37 Temperature 97.6 F Pulse Rate [ 91 H Right] Respiratory 20 Rate Blood Pressure 133/86 [Left Arm] Pulse Ox 99 - Reevaluation(s) Reevaluation #1: 06/05/19 00:52 Laboratory studies were reviewed and appear grossly unremarkable for an acute process. Reevaluation #2: 06/05/19 01:35 CT Brain: No acute process Patient was updated on all results, reports improvement in her headache symptoms. I did discuss the very rare potential complication of infection as a cause of her symptoms given direct conduit into the spinal cord from her pain pump, di scussed transfer for further evaluation and consultation as LP cannot be performed with external pain pump in place. Risks of missed [employer] infection were discussed with the patient and her SO at the bedside, patient is declining transfer at this time (shared decision making). Patient was counseled to call Dr. Vera tomorrow for further recommendations if her headache persists into tomorrow, and to return to the ED for re-evaluation and likely transfer at that time. Patient verbalizes understanding of all instructions, appears stable for discharge at this time. Medical Decision Making - Lab Data Result diagrams: 06/04/19 00:22 06/04/19 00:22 Disposition Disposition: Discharge Clinical Impression: Acute headache Qualifiers: Headache type: unspecified Intractability: not intractable Qualified Code(s): R51 - Headache Disposition: Home, Self-Care Condition: (2) Stable Instructions: Acute Headache (ED) Additional Instructions: Return to ED if your symptoms worsen or if you have any concerns. Follow-up with your family doctor in 3-5 days as directed. Forms: Patient Portal Access Time of Disposition: 01:40 Quality - Quality Measures Quality Measures: N/A - Blood Pressure Screening Does Patient Have Any of the Following: No Blood Pressure Classification: Pre-Hypertensive BP Reading Systolic Measurement: 133 Diastolic Measurement: 86 Screening for High Blood Pressure: < Pre-Hypertensive BP, F/U Documented > [G8950] Pre-Hypertensive Follow-up Interventions: Referral to alternative/primary care provider.
[2019-06-05] MEDS: DIPHENHYDRAMINE HCL 50 MG/ML VIAL IVP ONE (00:07)
[2019-06-05] MEDS: KETOROLAC 30 MG/ML VIAL IVP ONE (00:09)
[2019-06-05] MEDS: 0.9 % SODIUM CHLORIDE 1000ML 1,000 ML IV SCH (00:11)
[2019-06-05] MEDS: METOCLOPRAMIDE HCL 10 MG/2 ML VIAL IVP ONE (00:11)
[2019-06-05 00:31] LABS: BASO % 0.5 % (0-6); EOS % 3.3 % (0-6); GRAN % 66.1 % (47-80); HEMATOCRIT 36.4 % (35.0-47.0); HEMOGLOBIN 11.1 gm/dl (11.6-16.0); LYMPH % 22.6 % (16-45); MEAN CELL VOLUME 95.5 fl (81-97); MEAN CORPUSCULAR HEMOGLOBIN 29.1 pg (27-33); MEAN CORPUSCULAR HGB CONC 30.5 g/dl (32-36); MEAN PLATELET VOLUME 9.9 fl (7.4-10.4); MONO % 7.5 % (0-9); PLATELET COUNT 265 K/uL (130-400); RED BLOOD COUNT 3.81 M/uL (3.80-5.40); RED CELL DISTRIBUTION WIDTH 15.1 % (11.5-14.5); WHITE BLOOD COUNT W/O DIFF 7.6 K/uL (4.2-12.2)
[2019-06-05 00:43] LABS: BLOOD UREA NITROGEN 11 mg/dL (6-20)
[2019-06-05 00:44] LABS: CREATININE 0.5 mg/dL (0.5-0.9); EST GLOMERULAR FILTRATION RATE > 60 mL/min; TOTAL PROTEIN 5.9 g/dL (6.6-8.7)
[2019-06-05 00:46] LABS: GLUCOSE,RANDOM 102 mg/dL (74-109)
[2019-06-05 00:49] LABS: ALB/GLOB RATIO 1.3 (1.1-1.8); ALBUMIN 3.3 g/dL (4.0-5.0); ALKALINE PHOSPHATASE 77 U/L (35-104); ALT/SGPT 8 U/L (<33); AST/SGOT 16 U/L (10.0-35.0)
--- NOTE | 2019-06-05 01:28 | CT SCAN REPORT ---
EXAMINATION: CT Head without IV Contrast EXAM DATE: 06/05/2019 1:18 AM TECHNIQUE: Standard protocol CT images of the head were obtained without intravenous contrast. Mancera l and sagittal reconstructed images were created. INDICATION: headache COMPARISON: None HAND DOMINANCE: Unknown. ENCOUNTER: Not applicable FINDINGS: 1. There is no intracranial mass, midline shift, extraaxial fluid collection or hemorrhage. 2. The ventricles, sulci and cisterns are normal. 3. There are no suspicious area of altered attenuation. 4. There is no fracture. 5. The visualized aspects of the orbits, paranasal sinuses, and mastoid air cells are normal. IMPRESSION: No acute intracranial abnormalities. Dictated by: Aaliyah Chris MD on 06/05/2019 1:18 AM. .
== END 2019-06-05 01:52 | disposition home or self-care (01) ==
LOC: ER 23:28
DX: R51 Headache (principal); R11.0 Nausea; H53.149 Visual discomfort, unspecified; I10 Essential (primary) hypertension
CPT/HCPCS: 70450; 80053; 85025; 96374; 96375; 99284; J1200; J1885; J7030

== ENCOUNTER 2019-06-07 10:28 | Day surgery (SDC) | payer BC ==
[~2019-06-07 10:28] MED LIST changes: -FAMOTIDINE 20MG TABLET PO ONE; -HYDROMORPHONE PF 2MG/ML AMP 0.008 MG in 0.9 % SODIUM CHLORIDE 10ML VIA 0.996 ML IV ONE; -HYDROMORPHONE PF 2MG/ML AMP 8 MG in 0.9 % SODIUM CHLORIDE 500ML 496 ML IV ONE; -MECLIZINE 25 MG TABLET PO ONE
[2019-06-07] MEDS ORDERED: MIDAZOLAM HCL 2MG/2ML VIAL IV ONE (10:29)
[2019-06-07] MEDS ORDERED: PROPOFOL 10 MG/ML VIAL IV ONE (10:29)
[2019-06-07] MEDS ORDERED: DIPHENHYDRAMINE HCL 50 MG/ML VIAL IVP ONE (10:29)
[2019-06-07] MEDS ORDERED: FENTANYL PF 100MCG/2ML VIAL IV ONE (10:29)
[2019-06-07] MEDS ORDERED: LIDOCAINE 2% MDV (20MG/ML) 20ML VIAL IV ONE (10:29)
[2019-06-07] MEDS ORDERED: ONDANSETRON HCL IV 4 MG/2 ML VIAL IVP ONE (10:29)
[2019-06-07] MEDS ORDERED: CAFFEINE/SODIUM BENZOATE 250MG/ML 2ML VIAL IVP ONE (10:29)
[2019-06-07] MEDS ORDERED: RINGERS SOLUTION,LACTATED 1,000 ML IV ONE ×2 (10:40→12:10)
[2019-06-07] MEDS ORDERED: MECLIZINE 25 MG TABLET PO ONE (10:47)
[2019-06-07] MEDS ORDERED: FAMOTIDINE 20MG TABLET PO ONE (10:47)
[2019-06-07] MEDS ORDERED: Clindamycin 600mg vial 150 MG/ML VIAL IVPB ONE (11:59)
[2019-06-07] MEDS ORDERED: BUPIVACAINE 0.5% W/EPI MPF 30 ML VIAL SQ ONE (12:08)
[2019-06-07] MEDS ORDERED: LIDOCAINE 1% W/EPI 1:200,000 MPF 30ML SQ ONE (12:08)
[2019-06-07] MEDS ORDERED: AL HYDROX/MAG HYDROX 30ML UD PO PRN (13:00)
[2019-06-07] MEDS ORDERED: DIPHENHYDRAMINE HCL 50 MG/ML VIAL IVP PRN ×2 (13:00)
[2019-06-07] MEDS ORDERED: RINGERS SOLUTION,LACTATED 1,000 ML IV SCH (13:00)
[2019-06-07] MEDS ORDERED: ACETAMINOPHEN 325 MG TAB PO PRN (13:00)
[2019-06-07] MEDS ORDERED: SENNOSIDES/DOCUSATE SODIUM UD CAPSULE PO PRN ×2 (13:00)
[2019-06-07] MEDS ORDERED: DIPHENHYDRAMINE HCL 25 MG CAPSULE PO PRN ×2 (13:00)
[2019-06-07] MEDS ORDERED: TEMAZEPAM 15 MG CAPSULE PO PRN (13:00)
[2019-06-07] MEDS ORDERED: OXYCODONE/APAP 10MG-325MG TABLET PO PRN (13:15)
[2019-06-07] MEDS: OXYCODONE/APAP 10MG-325MG TABLET PO PRN ×2 (13:25→16:19)
[2019-06-07] MEDS ORDERED: BACLOFEN 10 MG TABLET PO SCH (16:00)
[2019-06-07] MEDS ORDERED: PROMETHAZINE HCL 25 MG TABLET PO PRN (16:10)
[2019-06-07] MEDS ORDERED: ONDANSETRON 4 MG ODT TABLET SL PRN (16:11)
[2019-06-07] MEDS ORDERED: GABAPENTIN 300 MG CAPSULE PO SCH (16:15)
[2019-06-07] MEDS ORDERED: BUPROPION HCL 150 MG TAB.SR.12H PO SCH (16:15)
[2019-06-07] MEDS ORDERED: CAFFEINE/SODIUM BENZOATE 250MG 500 MG in 0.9 % SODIUM CHLORIDE 100ML 100 ML IVP ONE (17:00)
[2019-06-07] MEDS ORDERED: CLINDAMYCIN 600MG/50ML PREMIX 600 MG/50 ML BAG IVPB SCH (20:00)
--- NOTE | 2019-06-10 10:50 | History and Physical Report ---
DATE OF SERVICE: 06/07/2019. DATE OF ADMISSION: 06/07/2019. CHIEF COMPLAINT/HISTORY OF CHIEF COMPLAINT: This patient with an ongoing implanted spinal catheter, infusion trial of hydromorphone, has had a spinal headache which has been unresolved through conservative therapies since the implant procedure on 06/01/2019. She is unable to take caffeine and so has not had any caffeinated beverages. A blood patch was performed at the time of the catheter implant. She has contacted the office several times every day since complaining of the headache and requesting the system be removed. MEDICAL HISTORY: Unchanged. SURGICAL HISTORY: Unchanged. CURRENT MEDICATIONS: Unchanged. ALLERGIES: VICODIN, BIAXIN, EFFEXOR, HYDROCORTISONE. SOCIAL HISTORY: Unchanged. FAMILY HISTORY: Unchanged. SYSTEMS REVIEW: Unchanged. PHYSICAL EXAMINATION: VITAL SIGNS: Height is 5'4", weight is 200 pounds. No vital signs. HEENT: Within normal limits. LUNGS: Clear. HEART: Rapid and regular. ABDOMEN: Nontender. MUSCULOSKELETAL: Examination of musculoskeletal system identifies the dressings for the implanted catheter intact. External pump has been turned off. NEUROLOGIC: Cranial nerves are intact. Bilateral lower extremity radiculopathy. IMPRESSION: 1. Lumbar radiculopathy. ICD10: 54.16 and 54.7. 2. Implanted spinal catheter infusion trial, hydromorphone side effects. PLAN: Patient is here for removal of the catheter on an outpatient basis. Epidural blood patch will be considered. NEVILLE
--- NOTE | 2019-06-14 07:11 | Operative Note ---
DATE OF SURGERY: 06/07/2019 PREOPERATIVE DIAGNOSES: 1. Lumbar radiculopathy. 2. Implanted spinal catheter fusion trial hydromorphone. 3. Unresolving spinal headache. OPERATION: 1. Removal of implanted spinal catheter. 2. Epidural blood patch. SURGEON: Terry Vera D.O. ANESTHESIA: Local sedation. ANESTHESIA PROVIDER: Sreedhar Gallegos CRNA. INDICATION: This patient with an implanted catheter and infusing trial hydromorphone, almost immediately developed a spinal headache, this despite having an epidural blood patch and IV caffeine. Multiple attempts to conservative therapies had failed to control her headache. For that reason she is here for removal of the catheter with blood patch. PROCEDURE: Intravenous line, vital sign monitoring, IV sedation , prepped and draped in sterile technique. The patient positioned prone, sterile prep and sterile technique. The previous incision for the midline catheter was identified and dissection was conducted. The catheter and the anchor identified. The suture removed. A pursestring suture placed around the penetration point and then the catheter was removed. The pursestring tightened, this stopped the CSF leak. The pursestring was reinforced with a second pursestring. The right posterior gluteal margin pouch for the intersection and connection between the two catheter components internal and external. The skin infiltrated. An incision was made, subcutaneous dissection was conducted to the catheter connection. The catheter connection was removed. The catheter cut. The external catheter removed by pulling away from the incision. The remaining catheter was removed. Antibiotic irrigation and Bovie for hemostasis. The posterior right incision was closed with Vicryl for fascia and amado for the skin. The midline incision was closed using Vicryl for the fascia and amado for the skin. Op-Site dressing is placed. She was transported to the recovery room stable. She will be kept after the closure of the incisions. An epidural blood patch was performed at L4-5, which was one level below the catheter placement, with 20 mL of autologous blood drawn in sterile technique in the left antecubital. After the blood patch, the dressings were reinforced. She was turned supine flat, transported to the recovery room, pillow under head and knees. She will be kept flat for 4 hours and slowly elevated for 1, and then if stable, discharged. She was given intravenous caffeine intraoperatively and will be given intravenous caffeine prior to her discharge. DISCHARGE INSTRUCTIONS: 1. The sites are to remain clean and dry. No showering or bathing in any way that would disrupt the dressings. 2. Standard medications resumed. She had been previously given [place] to manage her incisional pain for the trial. She feels that she has a reaction to the hydrocodone. She was then written a prescription for Percocet or oxycodone 5/325, to be taken 5 a day for 7 days to manage her incisional pain. The antibiotic Levaquin has been provided. 3. All other instructions provided, with numbers to contact for problems given. 4. We will see her in the office in 5 to 7 days. 5. The office to contact the patient in 12 to 24 hours to set up a time in 7 to 10 days to evaluate the site, until then she is to keep her activities low. She was then discharged. NEVILLE
== END 2019-06-07 18:30 | disposition home or self-care (01) ==
LOC: SUR 10:28 → MEDSURG 13:06 → SUR 18:30
PROVIDERS: ATTEND Pain Medicine Interventional Pain Medicine
DX: T88.59XA Other complications of anesthesia, initial encounter (principal); G44.41 Drug-induced headache, not elsewhere classified, intractable; Z96.9 Presence of functional implant, unspecified; I10 Essential (primary) hypertension; J45.909 Unspecified asthma, uncomplicated; G47.33 Obstructive sleep apnea (adult) (pediatric)
CPT/HCPCS: 62355; 62273; 00300; J2405; J3490 ×2; J3010; J1200; J7120

== ENCOUNTER → 2019-08-03 | Day surgery (SDC) | payer BC ==
[~2019-08-03] MED LIST changes: +BUPIVACAINE 0.5% W/EPI MPF 30 ML VIAL SQ ONE; +FAMOTIDINE 20MG TABLET PO ONE; +FENTANYL PF 100MCG/2ML VIAL IV ONE; +FLUCONAZOLE 100 MG TABLET PO ONE; +HYDROMORPHONE HCL 2 MG/ML VIAL IV ONE; +LIDOCAINE 1% W/EPI 1:100,000 MDV 20 ML VIAL SQ ONE; +LIDOCAINE 2% MDV (20MG/ML) 20ML VIAL IV ONE; +MECLIZINE 25 MG TABLET PO ONE; +MIDAZOLAM HCL 2MG/2ML VIAL IV ONE; +ONDANSETRON HCL IV 4 MG/2 ML VIAL IVP ONE; +PROPOFOL 10 MG/ML VIAL IV ONE; +RINGERS SOLUTION,LACTATED 1,000 ML IV ONE; +SCOPOLAMINE 1 PATCH TDSY TD ONE
--- NOTE | 2019-08-03 06:32 | History and Physical - [facility] ---
CHIEF COMPLAINT/HISTORY OF CHIEF COMPLAINT: This patient presents with history of intractable lumbar radiculopathy. A lumbar spinal cord stimulator was implanted on 05/28/18, since that period of time there has been a progression and a change in the patient's pain pattern now moving down towards the ankle and feet somewhat more left than right. The current stimulator placed for upper and low back has not been able to extend into the left lower extremity, ankle and feet. Despite multiple efforts at conservative therapies, reprogramming's and other options relative to the current spinal cord stimulator, we have been unsuccessful in gaining control. She is here for revision of her current stimulator which is more lumbar in an attempt to gain pattern stimulation down into the left foot. PAST MEDICAL HISTORY: Hypothyroidism, asthmatic bronchitis, sleep apnea, and hypertension. PAST SURGICAL HISTORY: Tonsils, section, hysterectomy, bypass surgery, and stimulator implant. MEDICATIONS ON ADMISSION: List to be provided. ALLERGIES: VICODIN, BIAXIN, EFFEXOR, AND HYDROCORTISONE. FAMILY/PSYCHOSOCIAL HISTORY: Family history - Unchanged from previous notations. Social history - Unchanged from previous notations. SYSTEMS REVIEW: The patient is appropriate in no acute distress. PHYSICAL EXAMINATION: Height is 5'4", weight is 200 pounds. No vital signs. HEENT: Within normal limits. LUNGS: Clear. HEART: Rapid and regular. ABDOMEN: Nontender. MUSCULOSKELETAL: Examination of the musculoskeletal system shows the incision for the leads approximating T11-T12. The generator pouch is identified at the left flank. All incisions are intact. Lower extremity functionality pain extending into the lower extremity, ankle and feet, left greater than right. Sensory michelle are intact. NEUROLOGIC: Cranial nerves are intact. IMPRESSION: 1. LUMBAR RADICULOPATHY, ICD-10 CODE M54.16 AND M54.17. 2. SPINAL CORD STIMULATOR INTERNAL GENERATOR. PLAN: Our plan is to revise the current indwelling system by pulling the left lead down in an attempt to get stimulation to shift into the left foot. Depending upon the ability we may pull both leads down in order to get stimulation lower and symmetrically bilateral. If we are unsuccessful we may add a third lead interfacing to the generator and extending down towards the foot. A single generator may be used to interface the three leads. If we are unsuccessful in splitting the two indwelling leads we may insert a second generator. The patient understands all of the potential risks, and side effects of the revision, understands that if we revise the lead and are unsuccessful in getting stimulation patterns we may remove the device. She understands and has agreed. The procedure will be considered outpatient, although an overnight stay will be evaluated. The risks, side effects and complications are noted and reviewed. JOB NUMBER: [id number] MTDD
--- NOTE | 2019-08-03 12:53 | Operative Note - Ferro ---
DATE OF SURGERY: 08/03/2019 PREOPERATIVE DIAGNOSIS: 1. LUMBAR RADICULOPATHY, ICD-10 CODE M54.16 AND M54.17. 2. SPINAL CORD STIMULATOR INTERNAL GENERATOR. OPERATION: 1. FLUOROSCOPICALLY GUIDED INCISION, SUBCUTANEOUS DISSECTION WITH REVISION OF LEAD 1 LEFT OF MIDLINE TWO LEAD SYSTEM, REVISED POSITION DOWN RETRACTING LEAD 2 VERTEBRAL INTERSPACES. 2. COMPLEX PROGRAMMING LEAD 1 TWENTY MINUTES. 3. INCISION, SUBCUTANEOUS DISSECTION AND REMOVAL OF INTERNAL PULSE GENERATOR LEFT FLANK. 4. INCISION, SUBCUTANEOUS DISSECTION, FORMATION OF SUBCUTANEOUS POUCH FOR A NEW GENERATOR ABOVE PREVIOUS OVER THE LOWER RIB MARGINS. 5. 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 6. INTERFACE NEW GENERATOR WITH TUNNELLED LEADS, PLACEMENT INTO POUCH, CLOSURE OF INCISION ALL THREE SITES USING 2-0 VICRYL AND DONOVAN FOR THE SKIN. 7. COMPLEX PROGRAMMING NEW INTERNAL GENERATOR LEFT LOWER RIB MARGIN RECOVERY ROOM TWENTY MINUTES. SURGEON: Terry Vera D.O. ANESTHESIA: Local sedation. ANESTHESIA PROVIDER: Sreedhar Gallegos CRNA INDICATION: This patient presents with history of intractable lumbar radiculopathy. A previous spinal cord stimulator internal generator had been placed which appeared to be functioning quite well for the back and upper leg. Over time this patient's pain changed and migrated down into the left foot. Multiple attempts at reprogramming were unsuccessful in getting foot. Pain clinic procedures, injections and other therapies were used which seemed to help the foot, but did not last. She is here for revision of the current system to see if revising the relative position of the electrodes can result in stimulation patterns to this new area of pain. Along with this the previous generator at the left flank seemed to be too low and when sitting the generator seemed to flip causing problems with programming and recharging. She is requesting that the generator be moved up to lower rib margins. PROCEDURE: Intravenous line, vital sign monitoring, IV sedation by Anesthesia. Patient was positioned prone. Sterile prep, sterile technique. The incision for the previous generator site left flank and the incision for the two leads midline infiltrated with local incision, subcutaneous dissection was conducted to the leads subcutaneously placed one left and one right. The anchor was identified. The left generator pouch at the flank was infiltrated, an incision was made, and subcutaneous dissection was conducted. The generator pouch and the generator was then exteriorized and from the leads. A new generator pouch at the left lower rib margins identified and infiltrated with local, incision made and subcutaneous dissection was conducted to form a pouch of suitable size and depth. With the anchors exposed to the two leads the anchor for the left lead was identified. The anchor was released and the stimulator on the left retracted two vertebral bodies inferiorly. With the patient awake complex programming of this lead in the new position was performed resulting in a complete pattern of stimulation into the left leg and foot. Patient indicating we now had control of the leg and foot. She was re-sedated. The lead pouch was then widened to accommodate the new lead position, the leads were removed, and the extensions removed from the previous flank pouch and then tunnelled into the new inferior rib pouch. The leads (two) were then interfaced with the generator, only one of the two leads revised. Antibiotic irrigation, Bovie for hemostasis. The leads and generator were placed into their own pouch at the inferior ribs. The leads at the midline were then placed into the pouch and all three incisions were closed using Vicryl for the fascia and donovan for the skin. OP-Site dressing placed. She was transported to the Recovery Room stable. When fully awake and alert, complex programming of the generator in its new location was performed successfully activating stimulation patterns into the leg and foot. Because of the patient's medical history and concerns for side effects, she was kept overnight for observation, she will be discharged in the morning. This procedure involved the revision and retraction of one neurostimulator the left lead and replacement with relocation of the internal pulse generator from the left posterior gluteal margin or flank to the left lower rib margin. As stated a new generator was used, the old generator replaced because it was being relocated from a different body region. DISCHARGE INSTRUCTIONS: 1. The sites are to remain clean and dry. No showering or bathing in any way that would disrupt the dressings, if it happens contact the clinical. 2. Standard medications were resumed including the antibiotic Levaquin. A prescription for postop pain Percocet 7.5, her request was written for seven days. 3. Office to contact the patient in 12-24 hours to set up a time in 7-10 days for us to evaluate the sites and remove the donovan. Until then she is to keep her activities controlled. All other instructions were provided, numbers to contact if problems given. She had tolerated the procedure without difficulty. There were no unusual side effects or pain. JOB NUMBER: [id number] [facility]
--- NOTE | 2019-08-04 13:30 | RADIOLOGY REPORT ---
EXAMINATION: Thoracic Spine Single View EXAM DATE: 08/03/2019 10:23 AM TECHNIQUE: Single frontal radiograph of the thoracolumbar spine is obtained. INDICATION: S/P REVISION OF LEADS AND GENERATOR COMPARISON: Radiographs June 01, 2019. ENCOUNTER: Initial FINDINGS: Recent revision of spinal stimulator leads is evident with skin amado overlying the left sided stim ulator pack. The radiopaque markers on the stimulator leads extend from T8 to T12. Right-sided stimul ator leads are also noted extending superiorly along the upper thoracic spine with the distal tip not visualized. Moderate amount of stool is seen throughout the colon which is normal in caliber. The bowel gas patte rn is otherwise unremarkable. Shallow inspiratory volumes are noted throughout the visualized portion s of the lungs. Surgical clips within the left upper quadrant of the abdomen suggest previous gastric surgery. IMPRESSION: Postsurgical changes consistent with recent spinal stimulator implant revision. Dictated by: Kale Disla DO on 08/04/2019 1:18 PM. .
== END | disposition home or self-care (01) ==
LOC: SUR 07:06
PROVIDERS: ATTEND Pain Medicine Interventional Pain Medicine
DX: M54.16 Radiculopathy, lumbar region (principal); M54.17 Radiculopathy, lumbosacral region; I10 Essential (primary) hypertension; E03.9 Hypothyroidism, unspecified; J45.909 Unspecified asthma, uncomplicated; G47.33 Obstructive sleep apnea (adult) (pediatric)
CPT/HCPCS: 72020; 95972; C1820; J2405; J7120